=== PATIENT | female | born 1990 | race Caucasian/White ===

== ENCOUNTER 2021-12-23 10:42 | Emergency (ER) | payer BC, SELFPAY ==
[2021-12-23 10:48] VITALS: BP 112/64; PULSE 95; RESP 16; TEMP 36.6; O2SAT 98
--- NOTE | 2021-12-23 10:54 | ED.URI ---
HPI - URI/Sore Throat General Chief Complaint: Upper Respiratory Infection Stated Complaint: SORE THROAT Time Seen by Provider: 12/23/21 10:55 Source: patient, family, RN notes reviewed and old records reviewed Mode of arrival: ambulatory Limitations: no limitations History of Present Illness HPI Narrative: 31-year-old female who presents to [facility] with complaints of sore throat, body aches, chills with no known fever for the past 2 days. Patient reports her pain to be 7 out of 10 described as sharp with soreness has been taking ibuprofen for her discomfort with last dose at 0900. Patient has some post nasal drainage, states she feels a little nasal stuffiness,no acute cough,some ear pressure, no shortness of breath reported. Patient has had COVID vaccinations but did not have flu shot this year. MD elicited complaint: sore throat, nasal congestion and other (body aches, chills, headache,) Onset (ago): day(s) (2) Consistency: progressively worsening Severity: moderate Pain scale (0-10): 7 Description of mucous: clear Able to tolerate fluids by mouth: Yes Exacerbating factors: swallowing Relieving factors: nothing Associated symptoms: chills, myalgias, headache, sore throat and other (post nasal drainage) Treatments prior to arrival: ibuprofen Related Data Home Medications Medication Instructions Recorded Confirmed atenolol 50 mg PO DAILY 12/23/21 12/23/21 Allergies Allergy/AdvReac Type Severity Reaction Status Date / Time No Known Allergies Allergy Verified 12/23/21 10:47 Review of Systems Review of Systems: CONSTITUTIONAL: No known fever, positive for chills, or sweats. EYES: Denies visual changes, redness, or discharge. ENT: post nasal drainage, congestion, sore throat, or otalgia. CARDIOVASCULAR: Denies chest pain, palpitations, or edema. RESPIRATORY: Denies cough or dyspnea. GASTROINTESTINAL: Denies abdominal pain, nausea, vomiting, or diarrhea. GENITOURINARY: Denies dysuria or hematuria. SKIN: Denies rash or itching. MUSCULOSKELETAL: Denies back pain, joint pain, positive for body aches NEUROLOGIC: Positive for headache, no numbness, or weakness. PSYCHIATRIC: Positive for history of anxiety or depression. All systems reviewed & are unremarkable except as noted in HPI and below [facility] Past Medical History Medical History (Updated 12/23/21 @ 11:27 by Luna Chambers NP) Anxiety Gestational diabetes History of ureteral obstruction During had to have ureteral stents Family History Family History (Updated 12/23/21 @ 11:19 by Luna Chambers NP) Grandparent Breast cancer Skin cancer Mother Cervical cancer Social History Social History (Updated 12/23/21 @ 11:19 by Luna Chambers NP) Smoking status: Never smoker Alcohol intake: never Substance use: never Living arrangements: with family Gender identity (if verbalized by the patient): Female Comments At time of signature, agree with nursing past medical, surgical, social and family history. There is no relevant family history pertinent to the presenting complaint Exam Narrative: GENERAL: Ill -appearing, well-nourished, and in no acute distress. HEAD: Normocephalic, atraumatic. EYES: PERRLA and EOMI. ENT: Nares with some redness and swelling, clear rhinorrhea no epistaxis. Mucous membranes moist.TM's normal with dull light reflex, throat red and swollen with uvula swollen but midline, white lesions noted on right tonsil with redness and enlargement, left tonsil red and enlarged. NECK: Supple. lymphadenopathy CHEST: Clear to auscultation. No respiratory distress.no acute cough noted, SAO2 98% on room air no tachypnea or accessory muscle use HEART: Regular rate and rhythm. No murmur heard. Normal peripheral pulses. ABDOMEN: Soft, nontender, nondistended, normal active bowel sounds. EXTREMITIES: Normal range of motion. No edema. SKIN: Warm, dry, no rash. NEURO: No focal deficits. Alert and oriented x3. Course Co
== END 2021-12-23 11:35 | disposition home or self-care (01) ==
PROVIDERS: Emergency Provider Registered Nurse; PCP Physician Assistant
DX: J03.90 Acute tonsillitis, unspecified (principal); Z20.822 Contact with and (suspected) exposure to COVID-19
CPT/HCPCS: 87081; 87426; 87804; 87880; 99213; C9803; G0463

== ENCOUNTER 2025-04-05 17:26 | Emergency (ER) | payer OTHER, SELFPAY ==
--- OUTSIDE RECORDS SUMMARY | 2025-04-05 17:29 | XMS_ITS | Clinical Summary ---
Author Organization [facility] Address [address] [place] [address] Phone Care Team Providers Care Hot Kettle Tender Name Role Phone Norman Paz Primary Care Provider [phone] Norman Paz PAC Unavailable [phone] eRggie Hadley MD Unavailable [phone] Nuvia Muniz APRN, FOLDING MACHINE TENDER Unavailable Allergies No known active allergies Medications atenolol (TENORMIN) 50 MG Tablet Take 50 mg by mouth daily. 08/01/20 16 Active ondansetron (ZOFRAN-ODT) 4 MG TABLET DISPERSIBLE Take 1 Tab by mouth every 8 hours as needed for Nausea - 1st line. 10 Tab 06/19/20 18 Active promethazine (PHENERGAN) 25 MG Tablet Take 1 Tab by mouth every 6 hours as needed for Nausea - 1st line. 20 Tab 11/13/19 19 Active Additional Information Patient not taking.Reported on 11/01/2022 diphenoxylate-atr opine (LOMOTIL) 2.5-0.025 MG Tablet Take 2 Tabs by mouth 4 times daily as needed for Diarrhea. 30 Tab 11/13/19 19 Active dicyclomine (BENTYL) 20 MG Tablet Take 1 Tab by mouth every 8 hours as needed (cramping). 15 Tab 11/13/19 19 Active traZODone (DESYREL) 50 MG Tablet Take 50 mg by mouth nightly as needed. Active ibuprofen (MOTRIN) 600 MG Tablet Take 1 Tab by mouth every 8 hours. 20 Tab 01/08/20 19 Active ondansetron (ZOFRAN ODT) 4 MG TABLET DISPERSIBLE Take 1 Tab by mouth every 8 hours as needed for Nausea - 1st line. 12 Tab 01/08/20 19 Active meloxicam (MOBIC) 15 MG Tablet Take 1 Tab by mouth daily. 10 Tab 07/17/20 19 Active atenolol (TENORMIN) 50 MG Tablet Take 50 mg by mouth daily. 10/01/19 23 Active ergocalciferol (VITAMIN D) 45480 UNIT Capsule TAKE 1 CAPSULE BY MOUTH WEEKLY FOR 12 WEEKS 07/08/20 22 Active FLUoxetine (PROZAC) 40 MG Capsule TAKE 1 CAPSULE BY MOUTH EVERY DAY IN THE MORNING 10/01/19 23 Active Vivitrol 380 MG Recon Suspension by Intramuscular route. MONTHLY 10/03/19 23 Active OXcarbazepine (TRILEPTAL) 150 MG Tablet Take 150 mg by mouth every morning. 09/30/19 23 Active prazosin (MINIPRESS) 2 MG Capsule TAKE 1 CAPSULE BY MOUTH EVERY NIGHT AT BEDTIME 07/04/20 22 Active Progesterone 200 MG Capsule 08/25/20 22 Active Vit-Fe Fumarate-FA ( VITAMINS PO) Take by mouth daily. Active lamoTRIgine (LaMICtal) 25 MG Tablet Take 25 mg by mouth every morning. Active HYDROcodone-aceta minophen (NORCO) 7.5-325 MG TabletIndications :Kidney stone Take 1 Tablet by mouth every 6 hours as needed for Moderate or more severe pain. 15 Tablet 04/15/20 23 Active Additional Information Patient not taking.Reported on 01/28/2024 ketorolac (TORADOL) 10 MG TabletIndications :Hydronephrosis with ureteropelvic junction (UPJ) obstruction Take 1 Tablet by mouth every 6 hours as needed for Moderate or more severe pain. 20 Tablet 04/18/20 23 Active Additional Information Patient not taking.Reported on 01/28/2024 HYDROcodone-aceta minophen ([place]) 5-325 MG TabletIndications :Kidney stone Take 1 Tablet by mouth every 6 hours as needed for Severe pain. 12 Tablet 04/25/20 23 Active Additional Information Patient not taking.Reported on 01/28/2024 docusate sodium (Colace) 100 MG Capsule Take 1 Capsule by mouth 2 times daily. 60 Capsule 04/25/20 Active Additional Information Patient not taking.Reported on 01/28/2024 tamsulosin (Flomax) 0.4 MG Capsule Take 1 Capsule by mouth daily. 30 Capsule 04/25/20 Active Additional Information Patient not taking.Reported on 01/28/2024 oxybutynin (DITROPAN-XL) 10 MG TABLET SR 24 HR Take 1 Tablet by mouth daily. 30 Tablet 04/25/20 Active Additional Information Patient not taking.Reported on 01/28/2024 ondansetron (ZOFRAN-ODT) 4 MG TABLET DISPERSIBLE Take 1 Tablet by mouth every 8 hours as needed for Nausea - 1st line. 20 Tablet 11/11/19 Active Additional Information Patient not taking.Reported on 01/28/2024 ketorolac (TORADOL) 10 MG Tablet Take 1 Tablet by mouth every 6 hours as needed for Moderate or more severe pain. 20 Tablet 11/11/19 Active Additional Information Patient not taking.Reported on 01/28/2024 methylPREDNISolon e (MEDROL DOSPACK) 4 MG Tablet Therapy Pack See product package insert for dosing schedule 21 Tablet 12/04/19 Active Additional Information Patient not taking.Reported on 01/28/2024 cyclobenzaprine (FLEXERIL) 5 MG Tablet Take 1 Tablet by mouth 3 times daily as needed for Muscle spasms. 15 Tablet 12/04/19 24 Active naproxen (NAPROSYN) 500 MG Tablet Take 1 Tablet by mouth 2 times daily as needed for Mild or more severe pain. 20 Tablet 01/06/20 24 Active sucralfate (CARAFATE) 1 GM/10ML SuspensionIndicat ions:Epigastric pain Take 10 mL by mouth 3 times daily. 900 mL 1 01/28/20 24 Active Active Problems Problem Noted Date Diagnosed Date Kidney stone 04/25/2023 Family History Medical History Relation Name Comments Breast Cancer Maternal Grandmother Uterine Cancer Maternal Grandmother Cancer Mother CERVICAL Uterine Cancer Mother Relation Name Status Comments Father Alive Maternal Grandmother Mother Alive Social History Tobacco Use Types Packs/Day Years Used Date Smoking Tobacco: Former Cigarettes Q uit: 2020 Passive Smoke Exposure: Never Smokeless Tobacco: Never Tobacco Cessation:Counseling Given: Not Answered Alcohol Use Standard Drinks/Week Comments Not Currently 0 (1 standard drink = 0.6 oz pur e alcohol) Sexually Active Control Partners Comments Not Currently Oral Contraceptive Comments No Sex and Gender Information Value Date Recorded Sex Assigned at Not on file Legal Sex Female 9:22 AM CDT Gender Identity Not on file Sexual Orientation Not on file Last Filed Vital Signs Vital Sign Reading Time Taken Comments Blood Pressure 108/60 01/28/2024 9:44 AM CDT Pulse 62 01/28/2024 9:44 AM CDT Temperature 36.9 C (98.4 F) 01/28/2024 9:44 AM CDT Respiratory Rate 14 01/28/2024 9:44 AM CDT Oxygen Saturation 100% 01/28/2024 9:44 AM CDT Inhaled Oxygen Concentration - - Weight 48.9 kg (107 lb 12.8 oz) 01/28/2024 9:44 AM CDT Height 162.6 cm (5' 4) 01/28/2024 9:44 AM CDT Body Mass Index 18.5 01/28/2024 9:44 AM CDT Plan of Treatment Health Maintenance Due Date Last Done Comments Hepatitis C Virus (HCV) Screening 1991 Pap Smear 02/14/2012 Cervical Cancer Screening (CCS) 2021 HPV/Cotest 2021 SARS-COV-2 Immunization ( season) 2024 02/17/2021, 01/23/2021 Influenza Immunization (#1) 2025 11/0 02/2023, 10/11/2022, 07/22/2021, Additional history exists Respiratory Syncytial Virus (RSV) Immunization (Adult) (1 - 1-dose 75+ series) 2066 Hepatitis B Immunization Completed 997, 05/07/1997, 05/19/1996 Human Papillomavirus (HPV) Immunization Completed 07/06/2007, 03/04/2007, 12/24/2006 DTaP/Tdap/Td Immunization Discontinued 2020, 12/24/2006, 09/09/2003, Additional history exists TdaP Immunization Completed 10/03/2020, 12/24/2006 Meningococcal Immunization (ACWY) Aged Out No longer eligible based on patient's age to complete this topic Pneumococcal Immunization Combined Aged Out No longer eligible based on patient's age to complete this topic Rotavirus Immunization Aged Out No lo nger eligible based on patient's age to complete this topic Medical Devices Implanted Type Area Rat Poisoner Device Identifier Shelf Expiration Date Model / Serial / Lot Stent Ureteral 6fr 2.1fr 26cm 2 Pigtail Curve 2 Durometer Taper Tip Loprfl Graduated Polaris Ultra - [id number] Implanted:Qty : 1 on 04/25/2023 by Reggie Hadley MD at [facility] IMPLANT Right: Ureter [employer] 02/05/2026 [id number] 0 / [id number] 0 / [id number] Explanted Type Area Rat Poisoner Device Identifier Shelf Expiration Date Model / Serial / Lot Stent Ureteral 6fr 2.1fr 26cm 2 Pigtail Curve 2 Durometer Taper Tip Loprfl Graduated Polaris Ultra - [id number] Implanted:Qty : 1 on 11/01/2022 by Reggie Hadley MD at [facility] Explanted:Qty : 1 on 04/25/2023 at [facility] IMPLANT Left: Ureter [employer] 06/11/2025 [id number] 0 / [id number] 0 / [id number] Stent Ureteral 6fr 2.1fr 26cm 2 Pigtail Curve 2 Durometer Taper Tip Loprfl Graduated Polaris Ultra - [id number] Implanted:Qty : 1 on 11/01/2022 by Reggie Hadley MD at [facility] Explanted:Qty : 1 on 04/25/2023 at [facility] IMPLANT Right: Ureter [employer] 06/11/2025 [id number] 0 / [id number] 0 / [id number] Insurance [facility] MEDICA[facility] [place] Care Teams Hot Kettle Tender Relationship Specialty Start Date End Date Norman Paz PAC [address] [place] [address] PCP - General Physician Eligibility Specialist 10/25/22 Norman Paz PAC [address] [place] [address] Physician Eligibility Specialist 10/25/22 Reggie Hadley MD [address] [address] Consulting Physician Urology 10/25/22 Nuvia Muniz APRN, FOLDING MACHINE TENDER [address] [place] [address] Nurse Practitioner Advanced Practice Nurse 01/28/24
--- OUTSIDE RECORDS SUMMARY | 2025-04-05 17:29 | XMS_ITS | Encounter Summary ---
Author Organization [facility] Address [address] [place] [address] Phone Care Team Providers Care Alarm Mechanic Name Role Phone Norman Paz Primary Care Provider [phone] Norman Paz PAC Unavailable [phone] Reggie Hadley MD Unavailable [phone] Nuvia Muniz APRN, CHANNELER Unavailable Encounter Details Date Type Department Care Team (Late st Contact Info) Description 04/17/2023 Transcribe Orders [facility] Preop/Pacu II [address] [place] [address] Suellen Banuelos III, MD [address] [place] [address] Right kidney stone (Primary Dx); Pre-op testing; Presence of urogenital implants Social History Tobacco Use Types Packs/Day Years Used Date Smoking Tobacco: Former Cigarettes Q uit: 2020 Passive Smoke Exposure: Never Smokeless Tobacco: Never Alcohol Use Standard Drinks/Week Comments Not Currently 0 (1 standard drink = 0.6 oz pur e alcohol) Sexually Active Control Partners Comments Not Currently Oral Contraceptive Comments No Sex and Gender Information Value Date Recorded Sex Assigned at Not on file Legal Sex Female 9:22 AM CDT Gender Identity Not on file Sexual Orientation Not on file COVID-19 Exposure Response Date Recorded In the last 10 days, have yo u been in contact with someone who was confirmed or suspected to have Coronavirus/COVID-19? No / Unsure 04/18/2023 12:52 PM CDT documented as of this encounter Plan of Treatment Not on file documented as of this encounter Results * (ABNORMAL) BASIC METABOLIC PANEL W/ CALCIUM TOTAL (04/18/2023 12:53 PM CDT) SODIUM 138 136 - 144 mmol/L 04/18/2023 2:01 PM CDT [facility] POTASSIUM 3.9 3.5 - 5.1 mmol/L 04/18/2023 2:01 PM CDT [facility] CHLORIDE 101 100 - 110 mmol/L 04/18/2023 2:01 PM CDT [facility] CO2, VENOUS 25 22 - 32 mmol/L 04/18/2023 2:01 PM CDT [facility] ANION GAP 15.9 8.0 - 20.0 mmol/L 04/18/2023 2:01 PM CDT [facility] GLUCOSE 118(H) 70 - 99 mg/dL 04/18/2023 2:01 PM CDT [facility] BUN 10 6 - 20 mg/dL 04/18/2023 2:01 PM CDT [facility] CREATININE, BLOOD 0.61 0.60 - 1.10 mg/dL 04/18/2023 2:01 PM CDT [facility] BUN/CREATININE RATIO 16 12 - 20 ratio 04/18/2023 2:01 PM CDT [facility] CALCIUM 9.2 8.7 - 10.5 mg/dL 04/18/2023 2:01 PM CDT [facility] IS THE PATIENT REQUIRED TO BE FASTING? No 04/18/2023 2:01 PM CDT [facility] GFR, ESTIMATED >60 >=60 04/18/2023 2:01 PM CDT [facility] Comment: Creatinine Clearance is the preferred criteria for selecting drug dose adjustments in renally impaired patients. The GFR is provided as additional pertinent clinical information. GFR is reported in mL/min/1.73 sq m. Calculation based on the Chronic Kidney Disease Epidemiology Collaboration (CKD- EPI) equation refit without adjustment for race. GFR, EST. >60 >=60 023 2:01 PM CDT [facility] GFR, EST. NONAFRICAN >60 >=60 04/18/2023 2:01 PM CDT [facility] Blood Venipuncture / Unknown 04/18/2023 12:53 PM CDT 04/18/2023 1:21 PM CDT us Suellen Banuelos III, MD CHEMISTRY ORDERABLES Fin al Result [facility] [address] [place] [address] documented in this encounter Visit Diagnoses Diagnosis Right kidney stone- Primary Calculus of kidney Pre-op testing Preoperative examination, unspecified Presence of urogenital implants documented in this encounter Additional Health Concerns Infection Onset Date Last Indicated Resolved Time COVID - 19 11/11/2023 11/11/2023 11/21/2023 12:1 6 AM ELECTRONIC EQUIPMENT MAINT TECH COVID - 19 01/06/2024 01/06/2024 01/06/2024 3:04 PM CDT documented as of this encounter Care Teams Alarm Mechanic Relationship Specialty Start Date End Date Norman Paz PAC [address] [place] [address] PCP - General Physician Product Tester Fiberglass 10/25/22 Norman Paz PAC [address] [place] [address] Physician Product Tester [employer]erglass 10/25/22 Reggie Hadley MD [address] [address] Consulting Physician Urology 10/25/22 Nuvia Muniz APRN, CHANNELER [address] [place] [address] Nurse Practitioner Advanced Practice Nurse 01/28/24 documented as of this encounter
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
--- OUTSIDE RECORDS SUMMARY | 2025-04-05 17:29 | XMS_ITS | Referral Summary ---
Author Organization [facility] Address [address] [place] [address] Care Team Providers Care Washer Carcass Name Role Phone Norman Paz Unavailable [phone] Shai Somers MD Unavailable [phone] Norman Paz Primary Care Provider [phone] Allergies No known active allergies Medications vit-iron [...] Overview (03/31/2023): Recommend seeing her therapist in [place] as her bipolar disorder is best served [...] [] Blue Team Referring Provider: Shai Somers [phone] [] or Medicare Insurance [x] Dating Criteria: [...] [] MOC: [] Method of feeding: [] Content Checker: [] PP Depression Discussed: Maternal varicella, non-immune 05/10/2024 11/12/2024 16 weeks gestation of 04/29/2024 09/17/2024 Anemia complicating pregnanc y in first trimester 03/05/2024 11/12/2024 37 weeks gestation of 03/04/2023 03/31/2023 Poor growth affecting management of mother in third trimester 02/17/2023 11/12/2024 Overview (02/17/2023): EFW: 5% AC: 3% Ureteral stent present 12/27/202203/12 Overview (12/27/2022): Added automatically from request for surgery [id number] Sterilization 03/22/2021 09/13/2022 Overview (03/22/2021): Added automatically from request for surgery [id number] Low-lying placenta 11/05/2020 Overview (11/05/2020): Anterior: 14-17 mm away on 09/12/20 scan. Anemia affecting i n second trimester 09/12/2020 11/12/2024 Hydroureteronephrosis 09/02/20202021 Overview (09/02/2020): Added automatically from request for surgery [id number] Hydronephrosis with urinary obstruction due to renal [...] 08/06/2024 MMR 11/18/2020(Deferred: Contraindic ation) Tdap 10/03/2020 Social History Tobacco Use Types Packs/Day Years Used Date Smoking Tobacco: Former Cigarettes 0.5 13 2 - 2019 Passive Smoke Exposure: Past Smokeless Tobacco: Never Tobacco Cessation:Counseling Given: Yes Comments:Pt unable to give detailed history Alcohol Use Standard Drinks/Week Comments Not Currently 0 (1 standard drink = 0.6 oz pur e alcohol) [facility] Utilities Answer Date Recorded In the past 12 months has e [employer], gas, oil, or water [employer] threatened to shut off services in your [...] week 09/30/2024 How often do you attend chur or mandaen services? Never 09/30/2024 Do you belong to any clubs o r organizations such as congregational groups, unions, fraternal or athletic groups, or [...] Date Recorded PHQ-2 Total Score 0 09/30/2024 [facility] - Occupational [...] place to sleep or slept in a senior care (including now)? No 03/05/2023 [place] Depression Scale Answer Date Recorded [place] Depression Scale Total 2 09/30/2024 The thought of harming myself has occurred to me . Never 09/30/2024 Housing Stability Vital Sign Answer Guy e Recorded In the last 12 months, was t here a time when you were not able to pay the mortgage or rent on time? No 09/30/2024 In the past 12 months, how m any times have you moved where you were living? 1 09/30/2024 At any time in the past 12 m [facility], were you homeless or living in a senior care (including now)? No 09/30/2024 Personal Safety Answer Date Recorded Have you ever been in or are you currently in a harmful physical or emotional relationship or is someone making you feel afraid or unsafe? Denies 09/29/2024 Comments No Sex and Gender Information Value Date Recorded Sex Assigned at Not on file Legal Sex Female 7:33 PM DE ICER INSTALLER Gender Identity Not on file Sexual Orientation Straight 05/01/2020 10 :30 AM CDT Last Filed Vital Signs Vital Sign Reading Time Taken Comments Blood Pressure 116/74 11/12/2024 2:33 PM DE ICER INSTALLER Pulse 65 10/01/2024 8:55 AM DE ICER INSTALLER Temperature 36.6 C (97.9 F) 10/01/2024 8:55 AM DE ICER INSTALLER Respiratory Rate 16 10/01/2024 8:55 AM DE ICER INSTALLER Oxygen Saturation 93% 09/29/2024 9:57 PM DE ICER INSTALLER Inhaled Oxygen Concentration - - Weight 49.9 kg (110 lb) 11/12/2024 2:33 PM DE ICER INSTALLER Height 162.6 cm (5' 4) 09/29/2024 8:18 AM DE ICER INSTALLER Body Mass Index 18.88 09/29/2024 8:18 AM DE ICER INSTALLER Plan of Treatment Not on file Medical Devices Implanted Type Area Rehab Director Occupational Therapist Device Identifier Shelf Expiration Date Model / Serial / Lot [employer] Rodolfo Contour 6fr 26cm Large Inner Lumen Low Profile Bladder Choco Taper Latex Free 180-223 - [id number] Implanted:Qty: 1 on 12/30/2022 by Reggie Hadley MD at [facility] Left: Urethra [employer]ol[employer] 10/12/2024 180-223 / / [id number] [employer] Rodolfo Contour 6fr 26cm Large Inner Lumen Low Profile Bladder Choco Taper Latex Free 180-223 - [id number] Implanted:Qty: 1 on 12/30/2022 by Reggie Hadley MD at [facility] Right: Urethra [employer] Rodolfo 10/12/2024 180-223 / / [id number] Explanted Type Area Rehab Director Occupational Therapist Device Identifier Shelf Expiration Date Model / Serial / Lot [employer] Rodolfo 180-222 Contour 6fr 24cm Large Inner Lumen Low Profile Bladder Choco Taper Latex Free - [id number] Implanted:Qty: 1 on 08/29/2020 by Altaf Jeronimo MD at [facility] Explanted:Qty: 1 on 12/07/2020 by Altaf Jeronimo MD at [facility] Right: Ureter [employer] Rodol[employer] 05/04/2023 180-222 / / [id number] [employer] Rodolfo 180-223 Contour 6fr 26cm Large Inner Lumen Low Profile Bladder Choco Taper Latex Free - [id number] Implanted:Qty: 1 on 08/29/2020 by Altaf Jeronimo MD at [facility] Explanted:Qty: 1 on 12/07/2020 by Altaf Jeronimo MD at [facility] Left: Abilio [employer] Warrior Rodolfo 04/28/2023 180-974 / / [id number] Procedures Procedure Name Priority Date/Time Associated Diagnosis [...] last revised on 2019. Testing performed by: [facility], [address] [place] [address]., [address] Blood 03/15/2024 10:1 9 AM CDT 03/15/2024 5:59 PM CDT Shai Somers MD LAB MICROBIOLOGY - GENERAL ORDERABLES Final Result [facility] 1 [facility] [place] [address] * Pap and HPV, reflex to HPV Genotypes (03/12/2024 4:00 PM CDT) CLINICAL INFORMATION: [facility] Comment:None given LMP [facility] Comment:A Previous Pap [facility] Comment:NONE GIVEN Prev. Bx [facility] Comment:NONE GIVEN SOURCE: [facility] Comment:Cervix, Endocervix Pap, specimen adequacy [facility] Comment: Satisfactory for evaluation. Endocervical/transformation zone component present. Partially obscuring inflammation HPV interp [facility] Comment: Cytology Results: Negative for intraepithelial lesion or malignancy. Infection: [facility] Comment: Fungal organisms morphologically consistent with Mari spp. COMMENTS [facility] Comment: This case could not be evaluated with computer assisted technology. The slide was manually screened according to routine procedures. Refinery Operator [facility] Comment: TLS, CT(ASCP) CT Screening Location: [place] [address] [facility] Comment: EXPLANATORY NOTE: The Pap is a [...] High Risk E6/E7 Not Detected NOT DETECTED Coy Kimball /Sarah PASCAL Comment: Not Detected High Risk HPV types (16,18,31,33,35,39,45,51,52, 56,58,59,66,68) were not detected. Other HPV types which cause anogenital lesions may be present. The significance of the other types of HPV in malignant processes has not been established. Methodology: Real Time PCR Thin prep 03/12/2024 4:00 PM CDT 03/15/2024 4:32 AM CDT Shai Somers MD LAB CYTOLOGY ORDERABLES Fi nal Result [address] [address] Coy Kimball/[place] [address] [place] [address] from Last 3 Months or Most Recently Relevant to Health Maintenance Insurance IDPA IDPA IDPA Advance Directives For more information, please contact: [phone] * Full Code (Latest Code Status on [...] in case of cardiopulmonary arrest Care Teams Washer Carcass Relationship Specialty Start Date End Date Norman Paz PA [address] [place] [address] PCP - General Family Practice 06/17/24 Norman Paz PA [address] [place] [address] 03/19/20 Shai Somers MD [address] [place] [address] DR MERRILL [address] [place] [address] Motion Graphics Artist Obstetrics and Gynecology 03/07/23
[2025-04-05 17:34] VITALS: BP 102/68; PULSE 87; RESP 18; TEMP 36.4; O2SAT 100
--- NOTE | 2025-04-05 17:37 | ECG_ITS ---
Test Date: 2025-04-05 17:42:44 Measurements Intervals [place] Rate: 88 P: 72 NV: 165 QRS: 49 QRSD: 74 T: 23 QT: 365 QTc: 442 Interpretive Statements SINUS RHYTHM NONSPECIFIC ST & T-WAVE ABNORMALITY ABNORMAL ECG No previous ECG available for comparison Electronically Signed On 04-06-2025 07:42:01 CDT by Juarez Alcantar M.D.
[2025-04-05 18:00] LABS: Hematocrit 38.7 % (37.0-47.0); Hemoglobin 13.1 g/dL (12.0-15.0); Immature Granulocyte Percent A 0.3 % (0-0.5); Lymphocytes Absolute Auto 1.51 K/mm3 (0.9-3.2); Mean Corpuscular HGB Conc 33.9 g/dl (32-36); Mean Corpuscular Hemoglobin 28.8 pg (26-34); Mean Corpuscular Volume 85.1 fl (80-100); Nucleated Red Blood Cells Absolute Auto 0.000 K/mm3 (0.0-0.012); Nucleated Red Blood Cells Perc 0.0 % (0.0-0.2); Platelet Count Result 230 k/mm3 (150-375); Red Blood Count 4.55 M/mm3 (4.2-5.4); White Blood Count 7.6 K/mm3 (4.5-10.0)
[2025-04-05 18:11] LABS: Alanine Aminotransferase 23 U/L (6-35); Albumin Level 4.6 g/dL (3.5-5.1); Alkaline Phosphatase 99 U/L (38-126); Anion Gap 12 mmol/L (4-12); Aspartate Amino Transferase 26 U/L (14-36); Bilirubin,Total 0.5 mg/dL (0.2-1.3); Blood Urea Nitrogen 13 mg/dL (7-17); Calcium 9.6 mg/dL (8.4-10.2); Carbon Dioxide 21 mmol/L (22-30); Chloride 107 mmol/L (98-107); Estimated CRCL calculation 59 ml/min; Estimated Glomerular Filt Rate > 60; Glucose 90 mg/dL (65-110); Lipase 64 U/L (23-300); Potassium 3.5 mmol/L (3.4-5.0); Sodium 140 mmol/L (137-145); Total Protein 7.7 g/dL (6.3-8.2)
--- OUTSIDE RECORDS SUMMARY | 2025-04-05 18:16 | XMS_ITS | Clinical Summary ---
Author Organization [facility] Address [address] [place] [address] Phone Care Team Providers Care Ed Tech Name Role Phone Norman Paz Primary Care Provider [phone] Norman Paz PAC Unavailable [phone] Reggie Hadley MD Unavailable [phone] Nuvia Muniz APRN, MOLDING TECHNICIAN Unavailable Allergies No known active allergies Medications [...] daily. 10/01/19 23 Active ergocalciferol (VITAMIN D) 82189 UNIT Capsule TAKE 1 CAPSULE BY MOUTH [...] Patient not taking.Reported on 01/28/2024 HYDROcodone-aceta minophen ([place]) 5-325 MG TabletIndications :Kidney stone Take 1 [...] this topic Medical Devices Implanted Type Area Runner Out Device Identifier Shelf Expiration Date Model / Serial / Lot Stent Ureteral 6fr 2.1fr 26cm 2 Pigtail Curve 2 Durometer Taper Tip Loprfl Graduated Polaris Ultra - [id number] Implanted:Qty : 1 on 04/25/2023 by Reggie Hadley MD at [facility] IMPLANT Right: Ureter [employer] 02/05/2026 [id number] 0 / [id number] 0 / [id number] Explanted Type Area Runner Out Device Identifier Shelf Expiration Date Model / Serial / Lot Stent Ureteral 6fr 2.1fr 26cm 2 Pigtail Curve 2 Durometer Taper Tip Loprfl Graduated Polaris Ultra - [id number] Implanted:Qty : 1 on 11/01/2022 by Reggie Hadley MD at [facility] Explanted:Qty : 1 on 04/25/2023 at [facility] IMPLANT Left: Ureter [employer] 06/11/2025 [id number] 0 / [id number] 0 / [id number] Stent Ureteral 6fr 2.1fr 26cm 2 Pigtail Curve 2 Durometer Taper Tip Loprfl Graduated Polaris Ultra - [id number] Implanted:Qty : 1 on 11/01/2022 by Reggie Hadley MD at [facility] Explanted:Qty : 1 on 04/25/2023 at [facility] IMPLANT Right: Ureter [employer] 06/11/2025 [id number] 0 / [id number] 0 / [id number] Insurance [facility] MEDICAID [place] Care Teams Ed Tech Relationship Specialty Start Date End Date Norman Paz PAC [address] [place] [address] PCP - General Physician Manager Customer 10/25/22 Norman Paz PAC [address] [place] [address] Physician Manager Customer 10/25/22 Reggie Hadley MD [address] [address] Consulting Physician Urology 10/25/22 Nuvia Muniz APRN, MOLDING TECHNICIAN [address] [place] [address] Nurse Practitioner Advanced Practice Nurse 01/28/24
--- OUTSIDE RECORDS SUMMARY | 2025-04-05 18:16 | XMS_ITS | Encounter Summary ---
Author Organization [facility] Address [address] [place] [address] Phone Care Team Providers Care Tig Welder Name Role Phone Norman Paz Primary Care Provider [phone] Norman Paz PAC Unavailable [phone] Reggie Hadley MD Unavailable [phone] Nuvia Muniz APRN, ELECTRONIC WARFARE TECHNICIAN Unavailable Encounter Details Date Type Department Care Team (Late st Contact Info) Description 04/17/2023 Transcribe Orders [facility] Preop/Pacu II [address] [place] [address] Suellen Banuelos III, MD [address] [place] [address] Right kidney stone (Primary Dx); Pre-op testing; [...] - 144 mmol/L 04/18/2023 2:01 PM CDT [facility] POTASSIUM 3.9 3.5 - 5.1 mmol/L 04/18/2023 2:01 PM CDT [facility] CHLORIDE 101 100 - 110 mmol/L 04/18/2023 2:01 PM CDT [facility] CO2, VENOUS 25 22 - 32 mmol/L 04/18/2023 2:01 PM CDT [facility] ANION GAP 15.9 8.0 - 20.0 mmol/L 04/18/2023 2:01 PM CDT [facility] GLUCOSE 118(H) 70 - 99 mg/dL 04/18/2023 2:01 PM CDT [facility] BUN 10 6 - 20 mg/dL 04/18/2023 2:01 PM CDT [facility] CREATININE, BLOOD 0.61 0.60 - 1.10 mg/dL 04/18/2023 2:01 PM CDT [facility] BUN/CREATININE RATIO 16 12 - 20 ratio 04/18/2023 2:01 PM CDT [facility] CALCIUM 9.2 8.7 - 10.5 mg/dL 04/18/2023 2:01 PM CDT [facility] IS THE PATIENT REQUIRED TO BE FASTING? No 04/18/2023 2:01 PM CDT [facility] GFR, ESTIMATED >60 >=60 04/18/2023 2:01 PM CDT [facility] Comment: Creatinine Clearance is the preferred criteria for selecting drug dose adjustments in renally impaired patients. The GFR is provided as additional pertinent clinical information. GFR is reported in mL/min/1.73 sq m. Calculation based on the Chronic Kidney Disease Epidemiology Collaboration (CKD- EPI) equation refit without adjustment for race. GFR, EST. >60 >=60 023 2:01 PM CDT [facility] GFR, EST. NONAFRICAN >60 >=60 04/18/2023 2:01 PM CDT [facility] Blood Venipuncture / Unknown 04/18/2023 12:53 PM CDT 04/18/2023 1:21 PM CDT us Suellen Banuelos III, MD CHEMISTRY ORDERABLES Fin al Result [facility] [address] [place] [address] documented in this encounter Visit Diagnoses Diagnosis Right kidney stone- Primary Calculus of kidney Pre-op testing Preoperative examination, unspecified Presence of urogenital implants documented in this encounter Additional Health Concerns Infection Onset Date Last Indicated Resolved Time COVID - 19 11/11/2023 11/11/2023 11/21/2023 12:1 6 AM WELL HEAD PUMPER COVID - 19 01/06/2024 01/06/2024 01/06/2024 3:04 PM CDT documented as of this encounter Care Teams Tig Welder Relationship Specialty Start Date End Date Norman Paz PAC [address] [place] [address] PCP - General Physician Inbound Ingredient Logistics Specialist 10/25/22 Norman Paz PAC [address] [place] [address] Physician Inbound Ingredient Logistics Specialist 10/25/22 Reggie Hadley MD [address] [address] Consulting Physician Urology 10/25/22 Nuvia Muniz APRN, ELECTRONIC WARFARE TECHNICIAN [address] [place] [address] Nurse Practitioner Advanced Practice Nurse 01/28/24 documented as of this encounter
--- OUTSIDE RECORDS SUMMARY | 2025-04-05 18:16 | XMS_ITS | Clinical Summary ---
Author Organization [facility] Address [address] [place] [address] Care Team Providers Care Sash Finisher Name Role Phone Norman Paz Unavailable [phone] Shai Somers MD Unavailable [phone] Norman Paz Primary Care Provider [phone] Allergies No known active allergies Medications vit-iron [...] Overview (03/31/2023): Recommend seeing her therapist in [place] as her bipolar disorder is best served [...] [] Blue Team Referring Provider: Shai Somers [phone] [] or Medicare Insurance [x] Dating Criteria: [...] [] MOC: [] Method of feeding: [] Flight Test Engineer: [] PP Depression Discussed: Maternal varicella, non-immune 05/10/2024 11/12/2024 16 weeks gestation of 04/29/2024 09/17/2024 Anemia complicating pregnanc y in first trimester 03/05/2024 11/12/2024 37 weeks gestation of 03/04/2023 03/31/2023 Poor growth affecting management of mother in third trimester 02/17/2023 11/12/2024 Overview (02/17/2023): EFW: 5% AC: 3% Ureteral stent present 12/27/202203/12 Overview (12/27/2022): Added automatically from request for surgery [id number] Sterilization 03/22/2021 09/13/2022 Overview (03/22/2021): Added automatically from request for surgery [id number] Low-lying placenta 11/05/2020 Overview (11/05/2020): Anterior: 14-17 mm away on 09/12/20 scan. Anemia affecting i n second trimester 09/12/2020 11/12/2024 Hydroureteronephrosis 09/02/20202021 Overview (09/02/2020): Added automatically from request for surgery [id number] Hydronephrosis with urinary obstruction due to renal [...] drink = 0.6 oz pur e alcohol) [facility] Utilities Answer Date Recorded In the past 12 months has e [employer], gas, oil, or water [employer] threatened to shut off services in your [...] week 09/30/2024 How often do you attend [facility] or protestant services? Never 09/30/2024 Do you belong to any clubs o r organizations such as presybeterian groups, unions, fraternal or athletic groups, or [...] Date Recorded PHQ-2 Total Score 0 09/30/2024 [facility] Occup[facility] ional Health - Occupational [...] place to sleep or slept in a care home (including now)? No 03/05/2023 [place] Depression Scale Answer Date Recorded [place] Depression Scale Total 2 09/30/2024 The thought [...] any time in the [facility] [address] [facility], were you homeless or living in a care home (including now)? No 09/30/2024 Personal Safety Answer Date Recorded Have you ever been in or are you currently in a harmful physical or emotional relationship or is someone making you feel afraid or unsafe? Denies 09/29/2024 Comments No Sex and Gender Information Value Date Recorded Sex Assigned at Not on file Legal Sex Female 7:33 PM TILE LAYER DRAINAGE Gender Identity Not on file Sexual Orientation [...] Comments Blood Pressure 116/74 11/12/2024 2:33 PM TILE LAYER DRAINAGE Pulse 65 10/01/2024 8:55 AM TILE LAYER DRAINAGE Temperature 36.6 C (97.9 F) 10/01/2024 8:55 AM TILE LAYER DRAINAGE Respiratory Rate 16 10/01/2024 8:55 AM TILE LAYER DRAINAGE Oxygen Saturation 93% 09/29/2024 9:57 PM TILE LAYER DRAINAGE Inhaled Oxygen Concentration - - Weight 49.9 kg (110 lb) 11/12/2024 2:33 PM TILE LAYER DRAINAGE Height 162.6 cm (5' 4) 09/29/2024 8:18 AM TILE LAYER DRAINAGE Body Mass Index 18.88 09/29/2024 8:18 AM TILE LAYER DRAINAGE Plan of Treatment Health Maintenance Due Date [...] this topic Medical Devices Implanted Type Area Investment Counselor Device Identifier Shelf Expiration Date Model / Serial / Lot [employer] Rodolfo Contour 6fr 26cm Large Inner Lumen Low Profile Bladder Choco Taper Latex Free 180-223 - [id number] Implanted:Qty: 1 on 12/30/2022 by Reggie Hadley MD at [facility] Left: Urethra [employer] 10/12/2024 180-223 / / [id number] [employer] Rodolfo Contour 6fr 26cm Large Inner Lumen Low Profile Bladder Choco Taper Latex Free 180-223 - [id number] Implanted:Qty: 1 on 12/30/2022 by Reggie Hadley MD at [facility] Right: Urethra [employer]ol[employer] 10/12/2024 180-223 / / [id number] Explanted Type Area Investment Counselor Device Identifier Shelf Expiration Date Model / Serial / Lot [employer] Rodolfo 180-222 Contour 6fr 24cm Large Inner Lumen Low Profile Bladder Choco Taper Latex Free - [id number] Implanted:Qty: 1 on 08/29/2020 by Altaf Jeronimo MD at [facility] Explanted:Qty: 1 on 12/07/2020 by Altaf Jeronimo MD at [facility] Right: Ureter [employer] 05/04/2023 180-222 / / [id number] [employer] 180-223 Contour 6fr 26cm Large Inner Lumen Low Profile Bladder Choco Taper Latex Free - [id number] Implanted:Qty: 1 on 08/29/2020 by Altaf Jeronimo MD at [facility] Explanted:Qty: 1 on 12/07/2020 by Altaf Jeronimo MD at [facility] Left: Ureter [employer]ol[employer] 04/28/2023 180-223 / / [id number] Procedures Procedure Name Priority Date/Time Associated Diagnosis [...] last revised on 2019. Testing performed by: [facility], [address] [place] [address]., [id number] Blood 03/15/2024 10:1 9 AM CDT 03/15/2024 5:59 PM CDT Shai Somers MD LAB MICROBIOLOGY - GENERAL ORDERABLES Final Result [facility] 1 [facility] Department [place] [address] * Pap and HPV, reflex to HPV Genotypes (03/12/2024 4:00 PM CDT) CLINICAL INFORMATION: [facility] Comment:None given LMP [facility] Comment:A Previous Pap [facility] Comment:NONE GIVEN Prev. Bx [facility] Comment:NONE GIVEN SOURCE: [facility] Comment:Cervix, Endocervix Pap, specimen adequacy [facility] Comment: Satisfactory for evaluation. Endocervical/transformation zone component present. Partially obscuring inflammation HPV interp [facility] Comment: Cytology Results: Negative for intraepithelial lesion or malignancy. Infection: [facility] Comment: Fungal organisms morphologically consistent with Mari spp. COMMENTS [facility] Comment: This case could not be evaluated with computer assisted technology. The slide was manually screened according to routine procedures. Jboss Architect Que [facility] Comment: TLS, CT(ASCP) CT Screening Location: [place] [address] Comment [facility] Comment: EXPLANATORY NOTE: The Pap is [...] High Risk E6/E7 Not Detected NOT DETECTED [employer] /Sarah PASCAL Comment: Not Detected High Risk HPV types (16,18,31,33,35,39,45,51,52, 56,58,59,66,68) were not detected. Other HPV types which cause anogenital lesions may be present. The significance of the other types of HPV in malignant processes has not been established. Methodology: Real Time PCR Thin prep 03/12/2024 4:00 PM CDT 03/15/2024 4:32 AM CDT Shai Somers MD LAB CYTOLOGY ORDERABLES nal Result [facility] [address] [place] [address] [facility]/[place] [address] [facility] [place] [address] from Last 3 Months or Most Recently Relevant to Health Maintenance Insurance IDPA IDPA IDPA Advance Directives For more information, please contact: [phone] * Full Code (Latest Code Status on [...] in case of cardiopulmonary arrest Care Teams Sash Finisher Relationship Specialty Start Date End Date Norman Paz PA [address] [place] [address] PCP - General Family Practice 06/17/24 Norman Paz PA [address] [place] [address] 03/19/20 Shai Somers MD [address] [place] [address] DR MERRILL [address] [place] [id number] Shake Out Worker Obstetrics and Gynecology 03/07/23
--- OUTSIDE RECORDS SUMMARY | 2025-04-05 18:16 | XMS_ITS | Referral Summary ---
Author Organization [facility] Address [address] [place] [address] Care Team Providers Care Phlebotomy Specialist Name Role Phone Norman Paz Unavailable [phone] Shai Somers MD Unavailable [phone] Norman Paz Primary Care Provider [phone] Allergies No known active allergies Medications vit-iron [...] Overview (03/31/2023): Recommend seeing her therapist in [place] as her bipolar disorder is best served [...] [] Blue Team Referring Provider: Shai Somers [phone] [] or Medicare Insurance [x] Dating Criteria: [...] [] MOC: [] Method of feeding: [] Operator Assistant I Cementing: [] PP Depression Discussed: Maternal varicella, non-immune 05/10/2024 11/12/2024 16 weeks gestation of 04/29/2024 09/17/2024 Anemia complicating pregnanc y in first trimester 03/05/2024 11/12/2024 37 weeks gestation of 03/04/2023 03/31/2023 Poor growth affecting management of mother in third trimester 02/17/2023 11/12/2024 Overview (02/17/2023): EFW: 5% AC: 3% Ureteral stent present 12/27/202203/12 Overview (12/27/2022): Added automatically from request for surgery [id number] Sterilization 03/22/2021 09/13/2022 Overview (03/22/2021): Added automatically from request for surgery [id number] Low-lying placenta 11/05/2020 Overview (11/05/2020): Anterior: 14-17 mm away on 09/12/20 scan. 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 Never 09/30/2024 Do you belong to [...] Date Recorded PHQ-2 Total Score 0 09/30/2024 [facility] - Occupational [...] place to sleep or slept in a penitentiary (including now)? No 03/05/2023 Chemult Depression Scale Answer Date Recorded Chemult Depression Scale Total 2 09/30/2024 The thought [...] any time in the past 12 m [facility], were you homeless or living in a penitentiary (including now)? No 09/30/2024 Personal Safety Answer Date Recorded Have you ever been in or are you currently in a harmful physical or emotional relationship or is someone making you feel afraid or unsafe? Denies 09/29/2024 Comments No Sex and Gender Information Value Date Recorded Sex Assigned at Not on file Legal Sex Female 7:33 PM [employer] Gender Identity Not on file Sexual Orientation Straight 05/01/2020 10 :30 AM CDT Last Filed Vital Signs Vital Sign Reading Time Taken Comments Blood Pressure 116/74 11/12/2024 2:33 PM [employer] Pulse 65 10/01/2024 8:55 AM [employer] Temperature 36.6 C (97.9 F) 10/01/2024 8:55 AM [employer] Respiratory Rate 16 10/01/2024 8:55 AM [employer] Oxygen Saturation 93% 09/29/2024 9:57 PM [employer] Inhaled Oxygen Concentration - - Weight 49.9 kg (110 lb) 11/12/2024 2:33 PM [employer] Height 162.6 cm (5' 4) 09/29/2024 8:18 AM [employer] Body Mass Index 18.88 09/29/2024 8:18 AM [employer] Plan of Treatment Not on file Medical Devices Implanted Type Area Gaming Manager Device Identifier Shelf Expiration Date Model / Serial / Lot [employer] Contour 6fr 26cm Large Inner Lumen Low Profile Bladder Choco Taper Latex Free 180-223 - [id number] Implanted:Qty: 1 on 12/30/2022 by Reggie Hadley MD at [facility] Left: Urethra [employer] 10/12/2024 180-223 / / [id number] [employer] Contour 6fr 26cm Large Inner Lumen Low Profile Bladder Choco Taper Latex Free 180-223 - [id number] Implanted:Qty: 1 on 12/30/2022 by Regige Hadley MD at [facility] Right: Urethra [employer] 10/12/2024 180-223 / / [id number] Explanted Type Area Gaming Manager Device Identifier Shelf Expiration Date Model / Serial / Lot [employer] 180-222 Contour 6fr 24cm Large Inner Lumen Low Profile Bladder Choco Taper Latex Free - [id number] Implanted:Qty: 1 on 08/29/2020 by Altaf Jeronimo MD at [facility] Explanted:Qty: 1 on 12/07/2020 by Altaf Jeronimo MD at [facility] Right: Ureter [employer] 05/04/2023 180-222 / / [id number] [employer] 180-223 Contour 6fr 26cm Large Inner Lumen Low Profile Bladder Choco Taper Latex Free - [id number] Implanted:Qty: 1 on 08/29/2020 by Altaf Jeronimo MD at [facility] Explanted:Qty: 1 on 12/07/2020 by Altaf Jeronimo MD at [facility] Left: Abilio Somo Rodolfo 04/28/2023 180-476 / / [id number] Procedures Procedure Name Priority Date/Time Associated Diagnosis [...] last revised on 2019. Testing performed by: [facility], [address] [place] [address]., [id number] Blood 03/15/2024 10:1 9 AM CDT 03/15/2024 5:59 PM CDT Shai Somers MD LAB MICROBIOLOGY - GENERAL ORDERABLES Final Result [facility] Department [place] [address] * Pap and HPV, reflex to HPV Genotypes (03/12/2024 4:00 PM CDT) CLINICAL INFORMATION: [facility] Comment:None given LMP [employer] [facility] Comment:A Previous Pap [employer] [facility] Comment:NONE GIVEN Prev. Bx [employer] [facility] Comment:NONE GIVEN SOURCE: [employer] [facility] Comment:Cervix, Endocervix Pap, specimen adequacy [facility] Comment: Satisfactory for evaluation. Endocervical/transformation zone component present. Partially obscuring inflammation HPV interp [facility] Comment: Cytology Results: Negative for intraepithelial lesion or malignancy. Infection: [facility] Comment: Fungal organisms morphologically consistent with Mari spp. COMMENTS [facility] Comment: This case could not be evaluated with computer assisted technology. The slide was manually screened according to routine procedures. [employer] [facility] Comment: TLS, CT(ASCP) CT Screening Location: [place] [address] Comment [facility] Comment: EXPLANATORY NOTE: The Pap is [...] MD LAB CYTOLOGY ORDERABLES Fi nal Result [address] [address] [address]/[place] [address] [place] [address] from Last 3 Months or Most Recently Relevant to Health Maintenance Insurance IDPA IDPA IDPA Advance Directives For more information, please contact: [phone] * Full Code (Latest Code Status on [...] in case of cardiopulmonary arrest Care Teams Phlebotomy Specialist Relationship Specialty Start Date End Date Norman Paz PA [address] [place] [address] PCP - General Family Practice 06/17/24 Norman Paz PA [address] [place] [address] 03/19/20 Shai Somers MD [address] [place] [address] DR MERRILL [address] [place] [id number] [facility] 03/07/23
[2025-04-05 18:17] LABS: INR 1.1; Prothrombin Time 14.0 Seconds (11.1-14.7)
[2025-04-05 18:19] LABS: Partial Thromboplastin Time 27.6 Seconds (22.3-36.8)
[2025-04-05 18:23] LABS: Troponin I < 0.012 ng/mL (0.000-0.034)
== END 2025-04-05 18:15 | disposition left against medical advice (07) ==
LOC: ANHED 18:14
PROVIDERS: Emergency Provider Emergency Medicine; PCP Physician Assistant
DX: R06.02 Shortness of breath (principal)
CPT/HCPCS: 36415; 80053; 83690; 84484; 85025; 85610; 85730; 93005; 99199

== ENCOUNTER 2025-04-05 18:24 | Emergency (ER) | payer OTHER, SELFPAY ==
--- NOTE | 2025-04-05 18:25 | ED_ITS ---
HPI - URI/Sore Throat General Chief Complaint: Upper Respiratory Infection Stated Complaint: headache/cough/blood sugar low Time Seen by Provider: 04/05/25 18:25 Source: patient Mode of arrival: ambulatory Limitations: no limitations History of Present Illness HPI Narrative: Patient is a 35-year-old female who presents with several weeks of sinus congestion, sinus pressure, headache, cough and fatigue. Patient has decreased appetite and tactile fever. Patient left without being seen from the ER earlier due to weight times. Patient had blood work and EKG done in the ER. Has been taking DayQuil with no relief. Related Data Home Medications ?Medication ?Instructions ?Recorded ?Confirmed ?Last Taken ?Type atenolol 50 mg tablet 50 mg PO DAILY 12/23/21 12/23/21 Unknown History Allergies Allergy/AdvReac Type Severity Reaction Status Date / Time No Known Allergies Allergy Verified 04/05/25 18:31 Review of Systems Review of Systems: All systems reviewed & are unremarkable except as noted in HPI and below Constitutional: Constitutional: Denies chills, Reports fatigue, Reports fever(s), Reports headache(s), Denies malaise and Denies weakness Eyes: Eyes: Denies blurry vision, Denies itchy eyes and Denies loss of vision ENT: Denies otalgia, Denies headache(s), Reports nasal congestion, Denies sinus pain and Denies sore throat Cardiovascular: Cardiovascular: Denies chest pain, Denies irregular heart rhythm and Denies dyspnea Respiratory: Respiratory: Reports cough and Denies dyspnea Gastrointestinal: Gastrointestinal: Denies abdominal pain, Denies diarrhea, Denies nausea and Denies vomiting Musculoskeletal: Musculoskeletal: Denies back pain, Denies myalgias and Denies arthralgias Integumentary/Breasts: Skin/Breast: Denies pruritus and Denies rash Neurologic: Reports headache(s), Denies loss of vision and Denies weakness Psychiatric: Psychiatric: Reports no additional psychiatric complaints Endocrine: Endocrine: Denies fatigue Allergic/Immunologic: Allergic/Immunologic: Denies itchy eyes PMFSH Past Medical History Medical History History of ureteral obstruction During had to have ureteral stents Anxiety Gestational diabetes Family History Family History Grandparent Breast cancer Skin cancer Mother Cervical cancer Social History Social History Smoking status: Never smoker Alcohol intake: never Substance use: never Living arrangements: with family Gender identity (if verbalized by the patient): Female Comments At time of signature, agree with nursing past medical, surgical, social and family history. There is no relevant family history pertinent to the presenting complaint. Exam Const: General: cooperative, healthy appearing, comfortable, no acute distress and well nourished Nutritional Appearance: well nourished Orientation/consciousness: patient oriented x3 Limitations: no limitations HENMT: Head: normal to inspection, normocephalic and atraumatic Ears: hearing grossly normal bilaterally, external ears normal, TM's normal bilaterally, EAC's normal and no periauricular adenopathy Face/Nose/Sinus: Normal external nose present, Abnormal mucous membranes and turbinates present erythematous bilateral and diffuse, normal facial exam, face symmetric and Facial tenderness on exam of face and sinuses Face and sinus: normal facial exam and face symmetric Mouth: Yes Normal oral and palatal mucosa present, Yes lip normal, Yes tongue normal, Yes Normal salivary glands and ducts present, Yes oropharynx normal and Yes moist mucous membranes Teeth and gingiva: dentition normal Throat: posterior oropharynx normal, tonsils normal and uvula midline Eyes: General: appearance normal, both eyes and all related structures Alignment and Position: alignment normal and position normal Periorbital: periorbital findings normal Eyelids: eyelids normal Pupils: Equal, round and reactive pupils present Neck: Neck: normal visual inspection, full ROM, no lymphadenopathy and supple Chest: Chest palpation & inspection: normal inspection of the chest and normal palpation of entire chest wall Resp: Effort & Inspection: normal respiratory effort, able to speak in complete sentences and Actively coughing wet Auscultation: no crackles, no rales, rhonchi lower bilaterally and no wheezes Cardio: Rate: regular rate Rhythm: regular rhythm Heart sounds: S1 normal heart sound present and S2 normal heart sound present GI: Inspection: normal to inspection Skin: General skin exam: normal color and no rashes or lesions noted Neuro: General: patient oriented x3 and moves all extremities Cranial nerves: Yes Equal, round and reactive pupils present Speech: normal speech Gait exam (Neuro): Normal gait present Extrem: General: normal to inspection, full ROM and no edema Psych: Appearance: grossly normal and well kempt Mental Status: mental status grossly normal Speech and movement: Normal speech and movement present Affect: normal affect Attitude: cooperative Thought process: Normal thought process present Course Course Emergency Course: Discharge instructions reviewed with patient, as well as provided in writing per nursing staff. The instructions also include specific and strict return/GO TO THE ER as well as f/u information. All questions have been answered, and the patient deny any further questions with discharge and discharge plan. Portions of this record may have been created with voice recognition software Level of Care: Express Care Visit Vital Signs Vital signs: Vital Signs Temperature 36.3 C L 04/05/25 18:29 Pulse Rate 79 04/05/25 18:29 Respiratory Rate 20 04/05/25 18:29 Blood Pressure 105/72 04/05/25 18:29 Pulse Oximetry 100 04/05/25 18:29 Oxygen Delivery Room Air 04/05/25 18:29 Temperature 36.3 C L 04/05/25 18:29 Pulse Rate 79 04/05/25 18:29 Respiratory Rate 20 04/05/25 18:29 Blood Pressure 105/72 04/05/25 18:29 Pulse Oximetry 100 04/05/25 18:29 Oxygen Delivery Room Air 04/05/25 18:29 Reviewed MDM - URI/Sore Throat MDM Narrative Medical decision making narrative: Patient's lab work an EKG from ER are reassuring and relatively normal. Will treat with steroids, antibiotics, albuterol and Tessalon Perles due to length of symptoms, clinical appearance Pt well hydrated appearing, in no respiratory distress, hemodynamically stable. Recommend supportive care. The patient is stable at time of discharge the clinical impression was discussed and the patient was given the opportunity to ask questions, which were addressed as completely as possible given the information available at present. Anticipatory guidance and return to care precautions were discussed and the importance of primary care follow-up was stressed and encouraged. The patient voiced understanding of the plan, indications to return, and the need for follow-up. Exam findings show no acute concerns or changes Patient is appropriate for outpatient treatment and follow-up. Differential diagnosis considered: Palomares virus, strep pharyngitis, allergic rhinitis, upper respiratory tract infection, sinusitis, rhinosinusitis, nasopharyngitis. viral pharyngitis, otitis media, otitis externa, otitis effusion, foreign body, cerumen impaction, viral syndrome, and influenza.? Medical Records Attestation: I reviewed the patient's medical records. Discharge Plan Discharge Clinical Impression: Upper respiratory infection with cough and congestion Patient Disposition: Home Condition: Stable Instructions: Upper Respiratory Infection (ED) Additional Instructions: Take antibiotic as prescribed. Take steroids in the morning with food. Use Tessalon Perles as needed for cough. Use inhaler with spacer as needed. Other symptomatic treatments include: -Alternate Tylenol and Motrin per package directions for fever or pain: Tylenol 650-1000mg by mouth every 4-6 hours. Do not exceed 4000mg in 24 hours. Advil (Ibuprofen) 600 mg by mouth every 6 hours. Do not exceed 2400mg in 24 hours. 8 AM: Tylenol 11 AM: Ibuprofen 2 PM: Tylenol 5 PM: Ibuprofen 8 PM: Tylenol 11 PM: Ibuprofen 2 AM: Tylenol 5 AM: Ibuprofen -Antihistamine medication such as Benadryl at night and Zyrtec/Claritin/Noreen during the day can help improve symptoms. -Use Flonase twice a day for 5 days then daily to help reduce the inflammation and dry up your sinuses. -You can also use Sudafed or Mucinex. Be sure to drink plenty of water with these medications at least 8 ounces with every dose and it is important to drink 8 to 10 glasses of water per day. Water is a natural decongestant -Eat and drink things that are easy to swallow, like tea or soup, or popsicles. -Oral rinses such as: Salt water gargles and/or may use topical anesthetic (eg. Chloraseptic spray) or lozenges to relieve dryness or throat pain). -Frequent hand washing or hand backroom associate is one of the best ways to prevent spread of infection. -Using a vaporizer or humidifier at night will also help thin secretions and help with coughing up phlegm. Call your Primary Care Doctor and make a follow-up appointment in 3 days. If your cough worsens, you develop a fever greater than 103, you develop shaking chills, a fast heartbeat, trouble breathing and/or feel you are are breathing much faster than usual, call your Primary Care Doctor or go to the ER. Patient Language: Maltese Prescriptions: New benzonatate 100 mg capsule 100 mg PO BID PRN (Reason: cough) Qty: 14 0RF albuterol sulfate 90 mcg/actuation HFA aerosol inhaler 2 puff inhalation QID PRN (Reason: shortness of breath or wheezing) Qty: 6.7 0RF amoxicillin-pot clavulanate 875-125 mg tablet 1 tablet PO Q12H 10 Days Qty: 20 0RF (DME) Aerochamber MV Spacer See Rx Instructions .Route Qty: 1 0RF Rx Instructions: As directed methylprednisolone [Medrol (Preston)] 4 mg tablets,dose pack See Rx Instructions .ROUTE .COMPLEX Qty: 21 0RF Rx Instructions: orally per package directions No Action atenolol 50 mg Tablet 50 mg PO DAILY Follow-up/Referrals: Jackson,MAHNAZ Lewis [Primary Care Provider] - 3 Days Time of Disposition: 19:17
[2025-04-05 18:29] VITALS: BP 105/72; PULSE 79; RESP 20; TEMP 36.3; O2SAT 100
== END 2025-04-05 19:26 | disposition home or self-care (01) ==
PROVIDERS: Emergency Provider Nurse Practitioner Family; PCP Physician Assistant
DX: J06.9 Acute upper respiratory infection, unspecified (principal); R05.9 Cough, unspecified
CPT/HCPCS: 99213; G0463

== ENCOUNTER 2025-05-31 17:50 | Emergency (ER) | payer OTHER, SELFPAY ==
--- NOTE | ~2025-05-31 | XR_ITS ---
[XR ribs RT 2V ] INDICATION: Right rib pain after fall TECHNIQUE: Frontal projection of the upper right ribs, frontal projection of the lower right ribs, oblique projection of all the right ribs, frontal inspiratory chest x-ray for interpretation. FINDINGS: There are no displaced rib fractures identified. There are no soft tissue abnormality seen. The lungs are clear. IMPRESSION: 1:No acute displaced rib fractures. Reviewed, dictated and finalized at location O.
--- NOTE | 2025-05-31 17:51 | ED.FALL ---
HPI - Fall General Chief Complaint: Fall Stated Complaint: thinks she broke a rib on right side Time Seen by Provider: 05/31/25 17:51 Source: patient Mode of arrival: ambulatory Limitations: no limitations History of Present Illness HPI Narrative: Lala is a 35-year-old female patient presenting to the clinic today with complaints right side rib pain. She reports she fell 4 days ago when she was climbing a [place] bed. States she slipped on a rock and fell onto her right side. Has pain with coughing and with taking deep breaths and also reports pain with moving. She feels a popping sensation in her ribs. Has been taking ibuprofen for her symptoms. She denies any shortness of breath. Related Data Home Medications ?Medication ?Instructions ?Recorded ?Confirmed ?Last Taken ?Type atenolol 50 mg tablet 50 mg PO DAILY 12/23/21 12/23/21 Unknown History bupropion HCl 150 mg 24 hr tablet, mg PO 05/31/25 Unknown History extended release escitalopram oxalate 10 mg tablet mg 05/31/25 Unknown History gabapentin 600 mg tablet mg 05/31/25 Unknown History hydroxyzine HCl 25 mg tablet mg 05/31/25 Unknown History Allergies Allergy/AdvReac Type Severity Reaction Status Date / Time No Known Allergies Allergy Verified 05/31/25 17:59 Review of Systems Review of Systems: Pertinent positives per HPI. Patient denies any fever, chills, rash, headache, visual changes, dizziness, cough, runny nose, sore throat, shortness of breath, chest pain, palpitations, nausea, vomiting, diarrhea, constipation, abdominal pain, or any urinary issues. [facility] Past Medical History Medical History History of ureteral obstruction During had to have ureteral stents Anxiety Gestational diabetes Family History Family History Grandparent Breast cancer Skin cancer Mother Cervical cancer Social History Social History Smoking status: Never smoker Alcohol intake: never Substance use: never Living arrangements: with family Gender identity (if verbalized by the patient): Female Comments At the time of my signature, I reviewed and agree with the nursing past medical, surgical, social, and family history. There is no relevant family history pertinent to the patient complaint. Exam Narrative: General: Well-developed, well nourished, in no apparent distress Head: Normocephalic, atraumatic. Chest wall: Even rise and fall of the chest wall with respirations, tenderness to palpation over the right anterior lateral ribs just below breast, no bruising or swelling noted Cardio: Regular rate and rhythm, s1 and s2 normal, no murmur appreciated. Resp: Clear to auscultation bilaterally, no rhonchi, rales, wheezing or rubs. Extremities: No deformity, no edema, no cyanosis, capillary refill less than 2 seconds, peripheral pulses palpable and strong. Integumentary: Humphrey, warm, and dry, intact without lesion, no rashes. Course Course Emergency Course: Portions of this record may have been created with voice recognition software. Level of Care: Express Care Visit Vital Signs Vital signs: Vital Signs Temperature 36.1 C L 05/31/25 17:56 Pulse Rate 83 05/31/25 17:56 Respiratory Rate 16 05/31/25 17:56 Blood Pressure 109/67 05/31/25 17:56 Pulse Oximetry 100 05/31/25 17:56 Oxygen Delivery Room Air 05/31/25 17:56 Temperature 36.1 C L 05/31/25 17:56 Pulse Rate 83 05/31/25 17:56 Respiratory Rate 16 05/31/25 17:56 Blood Pressure 109/67 05/31/25 17:56 Pulse Oximetry 100 05/31/25 17:56 Oxygen Delivery Room Air 05/31/25 17:56 Vital signs reviewed MDM - Fall MDM Narrative Medical decision making narrative: At the time of visit patient is resting comfortably on the exam table. Patient appears to be nontoxic. Complaints right side rib pain. She reports she fell 4 days ago when she was climbing a [place] bed. States she slipped on a rock and fell onto her right side. Has pain with coughing and with taking deep breaths and also reports pain with moving. She feels a popping sensation in her ribs. Has been taking ibuprofen for her symptoms. She denies any shortness of breath. No bruising or swelling noted over the right ribs, even rise and fall of the chest wall with respirations, tenderness to palpation over the right anterior lateral ribs just under the breast. Diagnostics: Right rib x-rays were performed and were negative for any sign of fracture, malalignment, pneumonia, or pneumothorax. Plan: I suspect patient has a right rib contusion. Prescription for naproxen was sent to the pharmacy. Supportive measures were discussed with the patient and they voiced understanding discharge instructions and agrees to treatment plan. Return precautions reviewed Differential Diagnosis Differential diagnosis: Likely other (Rib fracture, rib contusion, chest wall pain, pleurisy, pneumonia, tension pneumo) Imaging Data Radiologist's impression: ITS Impressions Ribs X-Ray 05/31/25 18:23 IMPRESSION: 1:No acute displaced rib fractures. Discharge Plan Discharge Clinical Impression: Contusion of rib on right side Qualifiers: Encounter type: initial encounter Qualified Code(s): S29.8XXA - Other specified injuries of thorax, initial encounter Patient Disposition: Home Condition: Stable Instructions: Antibiotic Form, Rib Contusion (ED) Additional Instructions: X-rays negative for any acute rib fracture, pneumonia, or pneumothorax. Take naproxen as prescribed as needed for pain When coughing and taking deep breath splint the area to help alleviate pain-may use this with a blanket or you sure hand May use heat or ice to the affected area May use blue emu, lidocaine patches, or asper cream to affected area- do not apply heat or ice directly over cream- can cause burn. Follow up with your PCP in 3-5 days if symptom persist. Patient Language: Kittitian Prescriptions: New naproxen 500 mg tablet 500 mg PO BID PRN (Reason: pain) 7 Days Qty: 14 0RF No Action gabapentin 600 mg tablet hydroxyzine HCl 25 mg tablet escitalopram oxalate 10 mg tablet bupropion HCl 150 mg tablet extended release 24 hr PO atenolol 50 mg Tablet 50 mg PO DAILY Follow-up/Referrals: Jackson,MAHNAZ Lewis [Primary Care Provider] Time of Disposition: 18:27 Quality NIHSS Nursing Documentation ED NIHSS nursing documentation: reviewed/agree
--- OUTSIDE RECORDS SUMMARY | 2025-05-31 17:52 | XMS_ITS | Clinical Summary ---
Author Organization [facility] Address [address] [place] [address] Phone Care Team Providers Care Child Protective Services Social Worker Name Role Phone Norman Paz Primary Care Provider [phone] Norman Paz PAC Unavailable [phone] Reggie Hadley MD Unavailable [phone] Nuvia Muniz APRN, CLAIM TRAINEE Unavailable Allergies No known active allergies Medications [...] daily. 10/01/19 23 Active ergocalciferol (VITAMIN D) 36245 UNIT Capsule TAKE 1 CAPSULE BY MOUTH [...] Patient not taking.Reported on 01/28/2024 HYDROcodone-aceta minophen (Marion) 5-325 MG TabletIndications :Kidney stone Take 1 [...] 9:44 AM CDT Respiratory Rate 14 01/28/2024 9:4 4 AM CDT Oxygen Saturation 100% 01/28/2024 9:44 [...] Cervical Cancer Screening (CCS) 2021 HPV/Cotest 2021 Influenza Immunization (#1) 2025 11/0 02/2023, 10/11/2022, 07/22/2021, Additional history exists SARS-COV-2 Immunization ( season) 2025 02/17/2021, 01/23/2021 Respiratory Syncytial Virus (RSV) Immunization (Adult) (1 [...] this topic Medical Devices Implanted Type Area Internal Communications Manager Device Identifier Shelf Expiration Date Model / Serial / Lot Stent Ureteral 6fr 2.1fr 26cm 2 Pigtail Curve 2 Durometer Taper Tip Loprfl Graduated Polaris Ultra - [id number] Implanted:Qty : 1 on 04/25/2023 by Reggie Hadley MD at [facility] IMPLANT Right: Ureter [employer] 02/05/2026 [id number] 0 / [id number] 0 / [id number] Explanted Type Area Internal Communications Manager Device Identifier Shelf Expiration Date Model / Serial / Lot Stent Ureteral 6fr 2.1fr 26cm 2 Pigtail Curve 2 Durometer Taper Tip Loprfl Graduated Polaris Ultra - [id number] Implanted:Qty : 1 on 11/01/2022 by Reggie Hadley MD at [facility] Explanted:Qty : 1 on 04/25/2023 at [facility] IMPLANT Left: Ureter [employer] 06/11/2025 [id number] 0 / [id number] 0 / [id number] Stent Ureteral 6fr 2.1fr 26cm 2 Pigtail Curve 2 Durometer Taper Tip Loprfl Graduated Polaris Ultra - [id number] Implanted:Qty : 1 on 11/01/2022 by [facility] Explanted:Qty : 1 on 04/25/2023 at [facility] IMPLANT Right: Ureter [employer] 06/11/2025 [id number] 0 / [id number] 0 / [id number] Insurance [facility] MEDICAID [place] Care Teams Child Protective Services Social Worker Relationship Specialty Start Date End Date Norman Paz PAC [address] [place] [address] PCP - General Physician Heat Treat Furnace Operator 10/25/22 Norman Paz PAC [address] [place] [address] Physician Heat Treat Furnace Operator 10/25/22 Reggie Hadley MD [address] [address] Consulting Physician Urology 10/25/22 Nuvia Muniz APRN, CLAIM TRAINEE [address] [place] [address] Nurse Practitioner Advanced Practice Nurse 01/28/24
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
--- OUTSIDE RECORDS SUMMARY | 2025-05-31 17:52 | XMS_ITS | Encounter Summary ---
Author Organization [facility] Address [address] [place] [address] Phone Care Team Providers Care Fraud Manager Name Role Phone Norman Paz Primary Care Provider [phone] Norman Paz PAC Unavailable [phone] Reggie Hadley MD Unavailable [phone] Nuvia Muniz APRN, SPORTS INTERN Unavailable Encounter Details Date Type Department Care Team (Late st Contact Info) Description 04/17/2023 Transcribe Orders [facility] Preop/Pacu II [address] [place] [address] Suellen Banuelos III, MD [address] [place] [address] Right kidney stone (Primary Dx); Pre-op testing; [...] - 144 mmol/L 04/18/2023 2:01 PM CDT [facility] POTASSIUM 3.9 3.5 - 5.1 mmol/L 04/18/2023 2:01 PM CDT [facility] CHLORIDE 101 100 - 110 mmol/L 04/18/2023 2:01 PM CDT [facility] CO2, VENOUS 25 22 - 32 mmol/L 04/18/2023 2:01 PM CDT [facility] ANION GAP 15.9 8.0 - 20.0 mmol/L 04/18/2023 2:01 PM CDT [facility] GLUCOSE 118(H) 70 - 99 mg/dL 04/18/2023 2:01 PM CDT [facility] BUN 10 6 - 20 mg/dL 04/18/2023 2:01 PM CDT [facility] CREATININE, BLOOD 0.61 0.60 - 1.10 mg/dL 04/18/2023 2:01 PM CDT [facility] BUN/CREATININE RATIO 16 12 - 20 ratio 04/18/2023 2:01 PM CDT [facility] CALCIUM 9.2 8.7 - 10.5 mg/dL 04/18/2023 2:01 PM CDT [facility] IS THE PATIENT REQUIRED TO BE FASTING? No 04/18/2023 2:01 PM CDT [facility] GFR, ESTIMATED >60 >=60 04/18/2023 2:01 PM CDT [facility] Comment: Creatinine Clearance is the preferred criteria for selecting drug dose adjustments in renally impaired patients. The GFR is provided as additional pertinent clinical information. GFR is reported in mL/min/1.73 sq m. Calculation based on the Chronic Kidney Disease Epidemiology Collaboration (CKD- EPI) equation refit without adjustment for race. GFR, EST. >60 >=60 023 2:01 PM CDT [facility] GFR, EST. NONAFRICAN >60 >=60 04/18/2023 2:01 PM CD[address] [facility] Blood Venipuncture / Unknown 04/18/2023 12:53 PM CDT 04/18/2023 1:21 PM CDT us Suellen Banuelos III, MD CHEMISTRY ORDERABLES Fin al Result [facility] [address] [place] [address] documented in this encounter Visit Diagnoses Diagnosis Right kidney stone- Primary Calculus of kidney Pre-op testing Preoperative examination, unspecified Presence of urogenital implants documented in this encounter Additional Health Concerns Infection Onset Date Last Indicated Resolved Time COVID - 19 11/11/2023 11/11/2023 11/21/2023 12:1 6 AM SPECIAL EDUCATION DIRECTOR COVID - 19 01/06/2024 01/06/2024 01/06/2024 3:04 PM CDT documented as of this encounter Care Teams Fraud Manager Relationship Specialty Start Date End Date Norman Paz PAC [address] [place] [address] PCP - General Physician Seismic Plotter 10/25/22 Norman Paz PAC [address] [place] [address] Physician Seismic Plotter 10/25/22 Reggie Hadley MD [address] [address] Consulting Physician Urology 10/25/22 Nuvia Muniz APRN, SPORTS INTERN [address] [place] [address] Nurse Practitioner Advanced Practice Nurse 01/28/24 documented as of this encounter
[2025-05-31 17:56] VITALS: BP 109/67; PULSE 83; RESP 16; TEMP 36.1; O2SAT 100
== END 2025-05-31 18:30 | disposition home or self-care (01) ==
PROVIDERS: Emergency Provider Nurse Practitioner Family; PCP Physician Assistant
DX: S20.211A Contusion of right front wall of thorax, initial encounter (principal); W01.0XXA Fall on same level from slipping, tripping and stumbling without subsequent striking against object, initial encounter; Y99.0 Civilian activity done for income or pay; F41.9 Anxiety disorder, unspecified
CPT/HCPCS: 71100; 99213; G0463